=== PATIENT | male | born 1965 | race Caucasian/White ===

== ENCOUNTER 2017-09-30 11:32 | Emergency (ER) | payer OTHER ==
[~2017-09-30] VITALS: Ht 185.4 cm; Wt 127.0 kg
[~2017-09-30 11:32] MED LIST: ASPIRIN81 MG PO; GABAPENTIN300 MG PO; LIPITOR20 MG PO; LOVENOX80 MG/0.8 SQ; PRILOSEC OTC20 MG PO; SYNTHROID100 MCG PO; TOPROL XL50 MG PO
[2017-09-30] MEDS ORDERED: SODIUM CHLORIDE 0.9% 1000ML 1,000 ML IV STA (11:50)
[2017-09-30] MEDS ORDERED: PANTOPRAZOLE 40 MG 10ML VIAL IV STA (11:50)
[2017-09-30] MEDS ORDERED: LOVASTATIN10 MG PO (11:53)
[2017-09-30] MEDS ORDERED: ONDANSETRON HCL INJ 2 MG/ML VIAL IV STA ×2 (11:57→15:16)
[2017-09-30] MEDS ORDERED: MORPHINE SULFATE 2 MG/ML SYR IV ONE (12:00)
[2017-09-30] MEDS ORDERED: TETANUS/DIPHTHERIA TOX ADULT 0.5 ML SYR IM ONE (12:00)
[2017-09-30] MEDS ORDERED: THIAMINE HCL INJ 100 MG/ML 2ML VIAL IV ONE (12:00)
--- NOTE | 2017-09-30 12:47 | Diagnostic Imaging Report ---
EXAMINATION: CHEST SINGLE (PORTABLE) INDICATION: Fall in garage. Pain. COMPARISON: None FINDINGS: AP view TUBES and LINES: None. LUNGS: Lungs are moderately inflated. There are bibasilar atelectasis. There is perihilar interstitial opacities, consistent with interstitial edema. Azygos lobe. PLEURA: No pleural effusion or pneumothorax. HEART AND MEDIASTINUM: The cardiomediastinal silhouette is unremarkable. BONES AND SOFT TISSUES: No acute osseous lesion. Soft tissues are unremarkable. UPPER ABDOMEN: No free air under the diaphragm. IMPRESSION: Interstitial edema with bibasilar atelectasis. Signed by: Dr. Erick Krueger M.D. on 09/30/2017 12:44 PM
--- NOTE | 2017-09-30 13:12 | Diagnostic Imaging Report ---
EXAM: CT Chest, Abdomen and Pelvis WITHOUT contrast INDICATION: \S\fall\S\Y COMPARISON: None. TECHNIQUE: Chest, abdomen and pelvis were scanned utilizing a multidetector helical scanner from the lung apex to the pubic symphysis without administration of IV contrast. Absence of intravenous contrast decreases sensitivity for detection of focal lesions and vascular pathology. Coronal and sagittal reformations were obtained. Routine protocol was performed. IV CONTRAST: None ORAL CONTRAST: Water COMPLICATIONS: None RADIATION DOSE: Total DLP: 2539.45 mGy*cm Estimated effective dose: (DLP x 0.015 x size factor) mSv CTDIvol has been reviewed. It is below the limits set by the Radiation Protocol Committee (RPC). FINDINGS: LINES and TUBES: None. LUNGS AND AIRWAYS: Several pulmonary nodules (series 5) Right upper lobe: 3.1 mm (image 40) Right middle lobe: 4.1 mm (image 63) Right middle lobe: 4.0 mm (image 85) Pneumatocele in the right lower lobe. Groundglass opacities in both lower lobes, right greater than left in the dependent portions, likely mild atelectasis. Atelectasis and mild bronchiectasis in the lingula and right middle lobe. Mild bronchial wall thickening. PLEURA: The pleural spaces are clear. HEART AND MEDIASTINUM: The thyroid gland is normal. No mediastinal, hilar or axillary lymphadenopathy. The heart is normal in size. There is no pericardial effusion. HEPATOBILIARY: The liver is diffuse hypodense compared to the spleen, consistent with diffuse hepatic diffuse hepatic steatosis. No focal hepatic lesions. No biliary ductal dilation. GALLBLADDER: No radio-opaque stones or sludge. No wall thickening. SPLEEN: Atrophic pancreas, possibly related artifact versus prior trauma. PANCREAS: No focal masses or ductal dilatation. ADRENALS: No adrenal nodules KIDNEYS/URETERS: Bilateral perinephric fat stranding, which is indeterminate. No hydronephrosis. 2.0 cm hyperdense lesion in the lateral lower pole of the left kidney, likely a hemorrhagic cyst. No stones. GI TRACT: Moderate sliding hiatal hernia. No abnormal distention, wall thickening, or evidence of bowel obstruction. Appendix is normal. PELVIC ORGANS/BLADDER: Unremarkable. LYMPH NODES: No lymphadenopathy. VESSELS: There is mild atherosclerotic disease in the aorta and major arterial branches. PERITONEUM / RETROPERITONEUM: No free air or fluid. BONES: Unremarkable. SOFT TISSUES: Previous midline laparotomy scar. IMPRESSION: 1. No acute abnormalities in the chest, abdomen, or pelvis. 2. 3 small benign-appearing lung nodules. 3. Bilateral peribronchial thickening, likely viral etiology or reactive airway. 4. Bilateral lower lobe atelectasis. 5. Moderate sliding hiatal hernia. Signed by: Dr. Erick Krueger M.D. on 09/30/2017 1:09 PM
[2017-09-30] MEDS ORDERED: CEFAZOLIN SOD 1 GM VIAL IV SCH (13:30)
[2017-09-30 13:32] LABS: BASOPHILS # (AUTO) 0.2 (0.0-0.1); BASOPHILS % 1.6 % (0.0-1.0); EOSINOPHILS # (AUTO) 0.3 (0.0-0.4); EOSINOPHILS % 3.1 % (0.0-6.0); HEMATOCRIT 44.9 % (38.2-49.6); HEMOGLOBIN 15.9 g/dL (14.0-18.0); LYMPHOCYTES # (AUTO) 1.7 (1.0-3.2); LYMPHOCYTES % 16.2 % (18.0-39.1); MEAN CORPUSCULAR HEMOGLOBIN 32.3 pg (28-32); MEAN CORPUSCULAR HGB CONC 35.4 g/dL (31-35); MEAN CORPUSCULAR VOLUME 91.3 fL (81-99); MONOCYTES # (AUTO) 1.3 (0.2-0.8); MONOCYTES % 12.8 % (4.4-11.3); NEUTROPHILS # (AUTO) 6.9 (2.1-6.9); PLATELET COUNT 542 x10e3/uL (140-360); RED BLOOD COUNT 4.92 x10e6/uL (4.3-5.7); RED CELL DISTRIBUTION WIDTH 14.5 % (11.7-14.4)
--- NOTE | 2017-09-30 13:32 | Diagnostic Imaging Report ---
History:Trauma, fall Comparison studies:None Technique: Axial images were obtained from the brain, face and cervical spine. Coronal and sagittal intracranial, maxillofacial and cervical reconstructions obtained from the axial data. Intravenous contrast: None Findings: Head CT: Scalp: No abnormalities. Bones: Intact. No fractures. No blastic or lytic lesions. Brain sulci: Appropriate for patient's age. Ventricles: Normal in size and configuration. No hydrocephalus. Parenchyma: No abnormal densities. No masses, acute hemorrhage, acute or chronic vascular insults. Suprasellar region: No abnormalities. Craniocervical junction: The foramen magnum is patent. No Chiari one malformation. Incidental findings: Atherosclerotic calcifications in the carotid siphons. Maxillofacial CT: Soft tissues: Right parietal soft tissue hematoma and subcutaneous emphysema related to laceration. No retained radiodense foreign body. Bones: No acute fractures. See orbits below. Orbits: Globe and lens are intact. No retrobulbar hematoma or extraocular muscle herniation. There is proptosis of the bilateral globes with increase intraorbital fat deposition with orbital expansion or remodeling. The superior and inferior rectus extraocular muscles are enlarged and partially fatty replaced. These findings can be seen with thyroid eye disease. There is chronic remodeling, demineralization and erosion of the orbital floor which is depressed as well as chronic remodeling and erosion of the bilateral lamina papyracea which are medially displaced. Paranasal sinuses: The frontal sinuses, frontoethmoidal recesses are opacified. The right ethmoids are opacified and mildly expanded presumably due to mucocele which exerts mild mass effect on the medial rectus muscle within the right extraconal space. The bilateral maxillary sinuses are partially opacified and there is chronic reactive mucoperiosteal thickening in the right maxillary sinus as sequela of chronic inflammation. Chronic orbital expansion effaces the left ethmoid air cells and exerts mass effect on the bilateral maxillary sinuses which are reduced in volume. Oral findings likely exacerbates sinus disease. Dentition: Multiple carious teeth with multifocal endodontal-periodontal disease. Cervical spine CT: Evaluation from C5 to the superior T2 level secondary attenuation artifact due to body habitus and patient's overlying shoulders. Atlantoaxial articulation: Intact Alignment: Mild lower cervical kyphosis is nonspecific and may be accentuated by patient position or possibly due to muscle spasm in the appropriate clinical setting. Cervicomedullary junction: No abnormalities. The foramen magnum is patent. Soft tissues: No gross acute abnormalities. Vertebrae: Normal in height and density. Nonaggressive-appearing 8 mm lytic lesion in the posterior left C3 vertebral body which extends to the lateral mass of similar appearing lytic lesion in the left C3 lamina are nonspecific, possibly hemangiomas. Incidental small degenerative vacuum cyst along the inferior C4 endplate anteriorly. Degenerative changes: Mild multilevel disc degeneration facet arthrosis. No canal or foraminal stenosis Incidental findings: Mild retropharyngeal of the carotid arteries at the C3 and C4 vertebral levels, an anatomical variant. Right upper lobe azygos fissure. Mild chronic remodeling and expansion of the left C4 transverse foramen may be secondary due to ectasia of the V2 segment of the left vertebral artery. Impression: Head CT: No acute abnormalities. Facial CT: 1. Right periorbital soft tissue hematoma and laceration. No retained hyperdense foreign body. 2. Orbital findings as described which can be seen as sequela of chronic thyroid eye disease. 3. 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 4. 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 Cervical spine CT: 1. No cervical spine fracture or subluxation. 2. Cannot adequately evaluate for ligament, spinal cord and or vascular abnormalities on the basis of this examination. Signed by: Dr. Chacorta Luna M.D. on 09/30/2017 1:28 PM
[2017-09-30 13:47] LABS: INR 3.02; PROTHROMBIN TIME 29.4 seconds (11.9-14.5)
[2017-09-30 13:48] LABS: PARTIAL THROMBOPLASTIN TIME 43.9 seconds (23.8-35.5)
[2017-09-30] MEDS: CEFAZOLIN SOD 1 GM/NS 50ML 50 ML IV STA ×2 (13:48→14:23)
[2017-09-30 13:57] LABS: ACETAMINOPHEN < 3 ug/mL (10-30); SALICYLATE < 5.0 mg/dL (0-30)
[2017-09-30 13:59] LABS: ALANINE AMINOTRANSFERASE 609 IU/L (0-55); ALBUMIN 3.1 g/dL (3.5-5.0); ALBUMIN/GLOBULIN RATIO 0.8 (0.8-2.0); ALKALINE PHOSPHATASE 265 IU/L (40-150); BLOOD UREA NITROGEN 7 mg/dL (7-26); BUN/CREATININE RATIO 9 (6-25); CALCIUM 8.7 mg/dL (8.4-10.2); CARBON DIOXIDE 25 mmol/L (22-29); CHLORIDE 95 mmol/L (98-107); CREATINE KINASE 109 IU/L (30-200); CREATININE, SERUM 0.76 mg/dL (0.72-1.25); EST GLOMERULAR FILTRATION RATE > 60 ML/MIN (60-); GLUCOSE 117 mg/dL (74-118); LIPASE 48 U/L (8-78); MAGNESIUM 1.5 MG/DL (1.3-2.1); SODIUM 127 mmol/L (136-145)
[2017-09-30 14:18] LABS: THYROID STIMULATING HORMONE 6.254 uIU/mL (0.350-4.940)
[2017-09-30] MEDS ORDERED: HYDROMORPHONE 1MG/1ML INJ IV SCH (15:30)
== END 2017-09-30 15:35 | disposition short-term general hospital (02) ==
LOC: ER 11:32
DX: S01.111A Laceration without foreign body of right eyelid and periocular area, initial encounter (principal); R10.13 Epigastric pain; R10.11 Right upper quadrant pain; M79.675 Pain in left toe(s); W01.198A Fall on same level from slipping, tripping and stumbling with subsequent striking against other object, initial encounter; Y92.008 Other place in unspecified non-institutional (private) residence as the place of occurrence of the external cause; F10.20 Alcohol dependence, uncomplicated; E66.01 Morbid (severe) obesity due to excess calories
CPT/HCPCS: 36415; 70450; 70486; 71045; 71250; 72125; 74176; 80053; 80320; 80329 ×2; 82550; 82553; 83690; 83735; 83880; 84443; 84484; 85025; 85610; 85730; 86850; 86900; 90471; 90714; 93005; 99284; J0690; J1170; J2270; J2405; J3411; J7030